=== PATIENT | female | born 1990 | race African-American/Black ===

== ENCOUNTER 2024-06-14 20:24 | Emergency (ER) | payer BC ==
[2024-06-14 20:30] VITALS: BP 154/90; PULSE 91; RESP 17; TEMP 98.6; BMI 49.6
[2024-06-14 20:53] LABS: HCG,QUALITATIVE URINE Negative
[2024-06-14 21:38] LABS: HEMATOCRIT 41.2 % (32.4-45.2); HEMOGLOBIN 13.4 G/dL (10.7-15.3); MCHC 32.6 g/dl (32.0-36.0); MEAN CELL VOLUME 79.6 fl (80-96); MEAN PLT VOLUME 8.2 fl (7.5-11.1); PLATELET COUNT 307.1 10^3/uL (134-434); RBC 5.17 10^6/uL (3.60-5.2); RDW 17.7 % (11.6-15.6); WHITE BLOOD COUNT 6.6 10^3/uL (4.0-10.8)
[2024-06-14 21:49] LABS: PLATELET ESTIMATE ADEQUATE
[2024-06-14 21:59] LABS: ALBUMIN 4.1 g/dl (3.4-5.0); BILIRUBIN,TOTAL 0.2 mg/dl (0.2-1); CALCIUM 9.8 mg/dl (8.5-10.1); CREATININE 0.7 mg/dl (0.6-1.3); POTASSIUM 3.8 mmol/L (3.5-5.1); TOT PROT 7.4 g/dl (6.4-8.2)
== END 2024-06-14 22:45 | disposition home or self-care (01) ==
LOC: FER 20:24
DX: K80.50 Calculus of bile duct without cholangitis or cholecystitis without obstruction (principal); R10.11 Right upper quadrant pain; R11.2 Nausea with vomiting, unspecified; R19.7 Diarrhea, unspecified
CPT/HCPCS: 36415; 80053; 81003; 84703; 85027; 99283-25